=== PATIENT | female | born 1945 | race Native Hawaiian/Other Pacific Islander ===

== ENCOUNTER 2016-05-19 15:33 | Outpatient (CLI) | payer OTHER ==
[2016-05-19] MEDS ORDERED: ACIDOPHILU4 PO (17:15)
[2016-05-19] MEDS ORDERED: ASA LOW DOSE81 MG PO (17:17)
[2016-05-19] MEDS ORDERED: DECUBI-VITE PO (17:18)
[2016-05-19] MEDS ORDERED: CHOL4POW11 PO (17:18)
[2016-05-19] MEDS ORDERED: LISI10TA11 PO (17:19)
[2016-05-19] MEDS ORDERED: OCUVITE PO (17:19)
[2016-05-19] MEDS ORDERED: METO50TA27 PO (17:20)
[2016-05-19] MEDS ORDERED: FERROUS GLUC324 MG PO (17:21)
[2016-05-19] MEDS ORDERED: REMERON SOLTAB15 MG PO (17:22)
[2016-05-19] MEDS ORDERED: LORA1TAB17 PO (17:23)
[2016-05-19] MEDS ORDERED: LORA2INJ21 INJ (17:24)
[2016-05-19] MEDS ORDERED: HYDR5TAB9 PO (17:25)
[2016-05-19] MEDS ORDERED: BACTRIM1 TAB PO (17:29)
== END 2016-05-19 16:26 | disposition short-term general hospital (02) ==
LOC: AMB 15:33
DX: F03.91 Unspecified dementia, unspecified severity, with behavioral disturbance (principal)
CPT/HCPCS: A0425; A0428

== ENCOUNTER 2017-09-07 22:02 | Emergency (ER) | payer OTHER ==
[~2017-09-07] VITALS: Ht 157.5 cm; Wt 117.9 kg
[2017-09-07 22:00] VITALS: TEMP 98
[~2017-09-07 22:02] MED LIST: ACIDOPHILU4 PO; ASA LOW DOSE81 MG PO; BACTRIM1 TAB PO; CHOL4POW11 PO; DECUBI-VITE PO; FERROUS GLUC324 MG PO; HYDR5TAB9 PO; LISI10TA11 PO; LORA1TAB17 PO; LORA2INJ21 INJ; METO50TA27 PO; OCUVITE PO; REMERON SOLTAB15 MG PO
[2017-09-07 23:08] LABS: PLATELET COUNT 323 K/uL (152-353)
[2017-09-07 23:18] LABS: POTASSIUM 3.7 mmol/L (3.6-5.2)
[2017-09-07 23:45] VITALS: BP 110/57
[2017-09-08] MEDS ORDERED: OMEPRAZOLE20 M1 PO (00:15)
[2017-09-08] MEDS ORDERED: NAMENDA10 MG PO (00:17)
[2017-09-08] MEDS ORDERED: DONE5TAB PO (00:20)
[2017-09-08] MEDS ORDERED: TRILEPTAL150 MG PO (00:20)
[2017-09-08] MEDS ORDERED: LEXAPRO10 MG PO (00:21)
[2017-09-08] MEDS ORDERED: RISP0.25 PO (00:23)
[2017-09-08] MEDS ORDERED: DIPH25CA90 PO (00:24)
== END 2017-09-07 23:45 | disposition other institution (70) ==
LOC: ED 22:02
DX: R46.89 Other symptoms and signs involving appearance and behavior (principal); Z04.6 Encounter for general psychiatric examination, requested by authority; I10 Essential (primary) hypertension
CPT/HCPCS: 36415; 80053; 85027; 93005; 99285